=== PATIENT | male | born 1990 | race Caucasian/White ===

== ENCOUNTER 2017-01-19 15:54 | Emergency (ER) | payer OTHER ==
[2017-01-19 15:57] VITALS: BP 167/89; TEMP 98.4; O2SAT 96
[2017-01-19 16:07] VITALS: PULSE 101; O2SAT 97
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
[2017-01-19] MEDS ORDERED: CEPH-460 PO (17:24)
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
[2017-01-19] MEDS ORDERED: ACETAMINOPHEN/HYDROcodone 325 MG/5 MG TAB PO ONE (17:30)
== END 2017-01-19 18:40 | disposition home or self-care (01) ==
LOC: NEPD 15:54
DX: S40.012A Contusion of left shoulder, initial encounter (principal); S50.812A Abrasion of left forearm, initial encounter; S60.811A Abrasion of right wrist, initial encounter; V29.9XXA Motorcycle rider (driver) (passenger) injured in unspecified traffic accident, initial encounter
CPT/HCPCS: 73030; 99283